=== PATIENT | female | born 1995 | race Two or more races ===

== ENCOUNTER 2017-08-06 06:37 | Emergency (ER) | payer OTHER ==
[~2017-08-06] VITALS: Ht 167.6 cm; Wt 81.6 kg
[2017-08-06] MEDS ORDERED: VISTARIL50 MG PO (07:32)
== END 2017-08-06 07:38 | disposition home or self-care (01) ==
LOC: ER 06:37
DX: R51 Headache (principal); F43.11 Post-traumatic stress disorder, acute; F43.0 Acute stress reaction; F41.1 Generalized anxiety disorder; F06.4 Anxiety disorder due to known physiological condition

== ENCOUNTER 2017-12-18 23:07 | Emergency (ER) | payer OTHER ==
[~2017-12-18] VITALS: Ht 152.4 cm; Wt 80.3 kg
[~2017-12-18 23:07] MED LIST: VISTARIL50 MG PO
[2017-12-19] MEDS ORDERED: PEPCID40 MG PO (04:26)
[2017-12-19] MEDS ORDERED: ZOFRAN4 MG PO (04:26)
[2017-12-19] MEDS ORDERED: DOLOGESIC 500-1 EACH PO (04:26)
== END 2017-12-19 04:22 | disposition home or self-care (01) ==
LOC: ER 23:07
DX: K29.70 Gastritis, unspecified, without bleeding (principal)

== ENCOUNTER 2019-04-12 15:51 | Emergency (ER) | payer OTHER ==
[~2019-04-12] VITALS: Ht 170.2 cm; Wt 72.6 kg
[~2019-04-12 15:51] MED LIST changes: +DOLOGESIC 500-1 EACH PO; +PEPCID40 MG PO; +ZOFRAN4 MG PO
[2019-04-12] MEDS ORDERED: NAPROXEN500 MG PO (18:30)
[2019-04-12] MEDS ORDERED: SKELAXIN800 MG PO (18:30)
== END 2019-04-12 18:34 | disposition home or self-care (01) ==
LOC: ER 15:51
DX: S39.012A Strain of muscle, fascia and tendon of lower back, initial encounter (principal); X50.9XXA Other and unspecified overexertion or strenuous movements or postures, initial encounter; Y93.89 Activity, other specified; Y92.69 Other specified industrial and construction area as the place of occurrence of the external cause; Y99.8 Other external cause status; M54.89 Other dorsalgia